=== PATIENT | male | born 1995 | race African-American/Black ===

== ENCOUNTER 2021-11-08 14:05 | Emergency (ER) | payer SELFPAY ==
[~2021-11-08] VITALS: Ht 188 cm; Wt 89.5 kg
[2021-11-08] MEDS ORDERED: ACETAMINOPHEN500 MG PO (15:28)
[2021-11-08] MEDS ORDERED: DOXYCYCLINE MO100 M1 PO (15:28)
[2021-11-08] MEDS ORDERED: CEFTRIAXONE 500 MG VIAL IM ONE (15:30)
== END 2021-11-08 16:14 | disposition home or self-care (01) ==
LOC: FSED 14:08
DX: R30.0 Dysuria (principal); N34.1 Nonspecific urethritis
CPT/HCPCS: 81003; 96372; 99283; J0696